=== PATIENT | female | born 1950 | race Caucasian/White ===

== ENCOUNTER → 2017-05-03 | Outpatient (CLI) | payer OTHER ==
[~2017-05-03] MED LIST: CALCA400CH; CHOL10002; Hair, Skin & N1 EACH; L-Lysine500 M1; MSM500 MG; Xalatan2.5 ML
[2017-05-05 12:03] LABS: HPV Genotype 16 Not Detected (NOTDET); HPV Genotype 18 Not Detected (NOTDET)
[2017-05-12 10:54] LABS: HPV High Risk Other Not Detected (NOTDET)
== END | disposition home or self-care (01) ==
LOC: LAB SHORT 16:19 → LAB 16:19
PROVIDERS: Obstetrics & Gynecology
DX: Z09 Encounter for follow-up examination after completed treatment for conditions other than malignant neoplasm (principal); Z86.19 Personal history of other infectious and parasitic diseases
CPT/HCPCS: 87624; 88142

== ENCOUNTER → 2017-06-30 | Outpatient (CLI) | payer OTHER ==
[2017-06-30 13:53] LABS: Stool Occult Bld Immuno 1 Negative (NEGATIVE)
== END | disposition home or self-care (01) ==
LOC: LAB 10:00 → LAB SHORT 10:00 → LAB FUT 04-13 16:35
PROVIDERS: Family Medicine
DX: Z11.2 Encounter for screening for other bacterial diseases (principal)
CPT/HCPCS: G0328

== ENCOUNTER → 2018-05-08 | Outpatient (CLI) | payer OTHER ==
[2018-05-10 15:07] LABS: HPV 16 Negative (Negative); HPV 18 Negative (Negative); HPV OTHER HR TYPES Negative (Negative)
== END | disposition home or self-care (01) ==
LOC: LAB 15:55 → LAB SHORT 15:55
PROVIDERS: Obstetrics & Gynecology
DX: Z01.419 Encounter for gynecological examination (general) (routine) without abnormal findings (principal)
CPT/HCPCS: 87624; G0123

== ENCOUNTER 2021-03-24 11:41 | Inpatient (IN) | payer OTHER ==
[~2021-03-24] VITALS: Ht 157.5 cm; Wt 50.4 kg
[~2021-03-24 11:41] MED LIST changes: -AMOCLA875 PO; -LACT PO; -Norco 5-325 Ta1 EACH PO; -TRAZ50 PO
[2021-03-24 12:42] LABS: BASOPHILS PERCENT AUTO 1 % (0-2); EOSINOPHILS ABSOLUTE AUTO 0.08 K/mm3 (0.00-0.68); EOSINOPHILS PERCENT AUTO 1 % (0-6); Hematocrit 41.1 % (33.0-51.0); Hemoglobin 13.5 g/dL (11.5-16.0); IMMATURE GRAN ABSOLUTE AUTO 0.19 K/mm3 (0.00-0.10); IMMATURE GRAN PERCENT AUTO 2 % (0-1); LYMPHOCYTES ABSOLUTE AUTO 1.51 K/mm3 (0.84-5.20); LYMPHOCYTES PERCENT AUTO 15 % (21-46); MONOCYTES ABSOLUTE AUTO 0.84 K/mm3 (0.16-1.47); MONOCYTES PERCENT AUTO 8 % (4-13); Mean Corpuscular HGB 35.7 pg (26.0-34.0); Mean Corpuscular HGB Conc 32.8 g/dL (31.5-36.5); Mean Corpuscular Volume 109 fL (80-100); Mean Platelet Volume 9.1 fL (9.1-12.4); NEUTROPHILS ABSOLUTE AUTO 7.68 K/mm3 (1.96-9.15); NEUTROPHILS PERCENT AUTO 74 % (41-73); Platelet Count 383 K/mm3 (150-400); RDW Coefficient Variation 12.4 % (11.7-14.2); RDW Standard Deviation 50.4 fL (35.1-46.3); Red Blood Cell Count 3.78 M/mm3 (3.80-5.20)
[2021-03-24 13:04] LABS: Alanine Aminotransfer (ALT/SGP 17 U/L (12-78); Albumin, Blood 3.1 g/dL (3.4-5.0); Albumin/Globulin Ratio 0.7 (0.8-1.8); Alk Phos 77 U/L (50-136); Anion Gap 8 mmol/L (6-16); Aspartate Aminotrans (AST/SGOT 23 U/L (12-37); Bilirubin, Total 0.2 mg/dL (0.1-1.0); Blood Urea Nitrogen 7 mg/dL (8-24); CO2, Blood 27 mmol/L (21-32); Calcium, Blood 9.2 mg/dL (8.5-10.1); Chloride, Blood 104 mmol/L (98-108); Globulin, Blood 4.5 g/dL (2.2-4.0); Glomerular Filtration Rate >60 (60-); Glucose, Blood 125 mg/dL (70-99); Potassium, Blood 3.5 mmol/L (3.5-5.5); Sodium, Blood 139 mmol/L (136-145); Total Protein, Blood 7.6 g/dL (6.4-8.2)
--- NOTE | 2021-03-24 18:42 | NUR ---
SHIFT SUMMARY PT ARRIVED TO UNIT AROUND 1500. PLEASANT & COOPERATIVE, UP IND IN ROOM. C/O ABD PAIN, BUT DENIES N/V.
[2021-03-24] MEDS ORDERED: TRAZ50 PO (21:51)
[2021-03-25 04:15] LABS: BASOPHILS ABSOLUTE AUTO 0.06 K/mm3 (0.00-0.23); BASOPHILS PERCENT AUTO 1 % (0-2); EOSINOPHILS ABSOLUTE AUTO 0.09 K/mm3 (0.00-0.68); EOSINOPHILS PERCENT AUTO 1 % (0-6); Hematocrit 33.2 % (33.0-51.0); Hemoglobin 10.9 g/dL (11.5-16.0); IMMATURE GRAN ABSOLUTE AUTO 0.14 K/mm3 (0.00-0.10); IMMATURE GRAN PERCENT AUTO 2 % (0-1); LYMPHOCYTES ABSOLUTE AUTO 1.53 K/mm3 (0.84-5.20); LYMPHOCYTES PERCENT AUTO 21 % (21-46); MONOCYTES ABSOLUTE AUTO 0.72 K/mm3 (0.16-1.47); MONOCYTES PERCENT AUTO 10 % (4-13); Mean Corpuscular HGB Conc 32.8 g/dL (31.5-36.5); Mean Corpuscular Volume 110 fL (80-100); Mean Platelet Volume 9.6 fL (9.1-12.4); NEUTROPHILS ABSOLUTE AUTO 4.94 K/mm3 (1.96-9.15); NEUTROPHILS PERCENT AUTO 66 % (41-73); Platelet Count 364 K/mm3 (150-400); RDW Coefficient Variation 12.4 % (11.7-14.2); Red Blood Cell Count 3.03 M/mm3 (3.80-5.20); White Blood Cell Count 7.48 K/mm3 (4.00-11.30)
[2021-03-25 04:39] LABS: Anion Gap 8 mmol/L (6-16); Blood Urea Nitrogen 5 mg/dL (8-24); Bun/Creatinine Ratio 9.9 (12.0-20.0); CO2, Blood 25 mmol/L (21-32); Calcium, Blood 8.3 mg/dL (8.5-10.1); Chloride, Blood 107 mmol/L (98-108); Creatinine, Blood 0.51 mg/dL (0.40-1.00); Glomerular Filtration Rate >60 (60-); Glucose, Blood 97 mg/dL (70-99); Potassium, Blood 3.1 mmol/L (3.5-5.5); Sodium, Blood 140 mmol/L (136-145)
--- NOTE | 2021-03-25 05:42 | NUR ---
PT VSS T/O NIGHT. PT NPO X ICE CHIPS, DENIED N/V, REP +FLATUS. ABD MILDLY DISTENDED, PAIN REMAINS IN LLQ. PAIN MGD PER EMAR. PT INDEP IN ROOM. IVF AND ABX CONT PER ORDERS.
--- NOTE | 2021-03-25 18:57 | NUR ---
SHIFT SUMMARY PT HAS DONE WELL T/O SHIFT. ADVANCED TO CLEAR LIQUIDS-TOLERATED WITH NO INCREASED PAIN/NAUSEA. PT HAS BEEN INDEPENDENT IN ROOM. PT REQUESTING IV PAIN MEDICATION FREQUENTLY-Q2. REQUESTED PO PAIN MEDICATION FROM DR FORD, ORDER FOR NORCO 1-2 Q4.
--- NOTE | 2021-03-26 06:01 | NUR ---
SLEPT WELL THROUGH NIGHT. NO ACUTE DITRESS NOTED, RESPIRATIONS EVEN AND UNLABORED. DENIES ABDOMINAL PAIN, BOWEL SOUNDS PRESENT IN ALL 4 QUADS. VOIDING WITHOUT DIFFICULTIES. SAFETY MAINTAINED, CALL GALLOWAY IN REACH
--- NOTE | 2021-03-26 06:25 | NUR ---
MEDICATED WITH NORCO X'S 2 DUE TO COMPLAINT OF ABDOMINAL PAIN, EFFECTIVE RELIEF. SLEPT WELL THROUGH NIGHT, STATED SHE FELT ALOT BETTER THIS AM. SAFETY MAINTAINED, CALL GALLOWAY IN REACH.
[2021-03-26] MEDS ORDERED: AMOCLA875 PO (12:51)
[2021-03-26] MEDS ORDERED: Norco 5-325 Ta1 EACH PO (12:52)
[2021-03-26] MEDS ORDERED: LACT PO (12:52)
--- NOTE | 2021-03-26 14:51 | NUR ---
2693 PT REPORTS LOWER ABD CRAMPING PAIN 8/10 AFTER EATING LUNCH. PT REQUESTS 2 NORCO PRIOR TO DISCHARGE. DISCUSSED WITH PATIENT CURRENT PAIN LEVEL AND IF SHE IS FEELING THAT SHE IS READY TO DISCHARGE, DISCUSSED WITH PATIENT THAT RN WILL CONTACT DR VEGA TO DISCUSS HER INCREASED PAIN AFTER EATING.PT DECLINES THAT DR VEGA BE CONTACTED AND STATES SHE "CAN BE A PATIENT AT HOME" AND THAT SHE WISHES TO PROCEED WITH DISCHARGE
--- NOTE | 2021-03-26 15:28 | NUR ---
1500 PT REQUESTS DISCHARGE HOME. REQUESTED THAT PATIENT STAY FOR 30 MIN AFTER LAST DOSE OF PO MEDS AND PT REQUESTS DISCHARGE AT THIS TIME. PT REPORTS PAIN IS 8/10, DISCUSSED WITH PATIENT IF SHE FEELS THAT SHE IS ABLE TO BE DISCHARGED HOME OR IF SHE WOULD LIKE TO WAIT UNTIL I SPEAK WITH DR VEGA. PT REQUESTS DISCHARGE HOME
== END 2021-03-26 14:46 | disposition home or self-care (01) | DRG 392 ==
LOC: ER 11:41 → SURS 13:57
PROVIDERS: Physician Assistant; ADMIT Surgery
DX: K57.20 Diverticulitis of large intestine with perforation and abscess without bleeding (principal); E87.6 Hypokalemia; H40.9 Unspecified glaucoma; Z53.29 Procedure and treatment not carried out because of patient's decision for other reasons; Z88.0 Allergy status to penicillin; Z88.8 Allergy status to other drugs, medicaments and biological substances; Z90.49 Acquired absence of other specified parts of digestive tract; Z98.890 Other specified postprocedural states; Z90.721 Acquired absence of ovaries, unilateral; Z79.2 Long term (current) use of antibiotics
CPT/HCPCS: 36415; 80048; 80053; 83605; 83690; 85025; 87040; 99285-25; A9270; J1650; J2543; J3010; J7030; J7120

== ENCOUNTER → 2021-03-24 | Outpatient (CLI) | payer OTHER ==
[~2021-03-24] MED LIST changes: +AMOCLA875 PO; -CHOL10002; -Hair, Skin & N1 EACH; +Hair, Skin & N1 EACH PO; -L-Lysine500 M1; +L-Lysine500 M1 PO; +LACT PO; -MSM500 MG; +MSM500 MG PO; +Norco 5-325 Ta1 EACH PO; +TRAZ50 PO; +VITAMIN D325 MC3 PO; -Xalatan2.5 ML; +Xalatan2.5 ML BOTHEYES
== END | disposition home or self-care (01) ==
LOC: LAB 09:30 → LAB SHORT 09:30
DX: N39.0 Urinary tract infection, site not specified (principal)
CPT/HCPCS: 87086

== ENCOUNTER 2021-04-11 13:01 | Inpatient (IN) | payer OTHER ==
[~2021-04-11] VITALS: Ht 157.5 cm; Wt 49.0 kg
[~2021-04-11 13:01] MED LIST changes: +AMOCLA875 PO; +LACT PO; +Norco 5-325 Ta1 EACH PO; +TRAZ50 PO
[2021-04-11 13:39] LABS: BASOPHILS ABSOLUTE AUTO 0.06 K/mm3 (0.00-0.23); BASOPHILS PERCENT AUTO 1 % (0-2); EOSINOPHILS ABSOLUTE AUTO 0.26 K/mm3 (0.00-0.68); EOSINOPHILS PERCENT AUTO 3 % (0-6); Hematocrit 32.6 % (33.0-51.0); Hemoglobin 10.6 g/dL (11.5-16.0); IMMATURE GRAN ABSOLUTE AUTO 0.18 K/mm3 (0.00-0.10); IMMATURE GRAN PERCENT AUTO 2 % (0-1); LYMPHOCYTES ABSOLUTE AUTO 1.17 K/mm3 (0.84-5.20); LYMPHOCYTES PERCENT AUTO 14 % (21-46); MONOCYTES ABSOLUTE AUTO 0.43 K/mm3 (0.16-1.47); MONOCYTES PERCENT AUTO 5 % (4-13); Mean Corpuscular HGB 33.5 pg (26.0-34.0); Mean Corpuscular HGB Conc 32.5 g/dL (31.5-36.5); Mean Corpuscular Volume 103 fL (80-100); Mean Platelet Volume 8.8 fL (9.1-12.4); NEUTROPHILS ABSOLUTE AUTO 6.48 K/mm3 (1.96-9.15); NEUTROPHILS PERCENT AUTO 76 % (41-73); Platelet Count 541 K/mm3 (150-400); RDW Coefficient Variation 14.1 % (11.7-14.2); RDW Standard Deviation 53.5 fL (35.1-46.3); Red Blood Cell Count 3.16 M/mm3 (3.80-5.20); White Blood Cell Count 8.58 K/mm3 (4.00-11.30)
[2021-04-11 14:00] LABS: Alanine Aminotransfer (ALT/SGP 64 U/L (12-78); Albumin, Blood 2.5 g/dL (3.4-5.0); Albumin/Globulin Ratio 0.5 (0.8-1.8); Alk Phos 131 U/L (50-136); Anion Gap 7 mmol/L (6-16); Aspartate Aminotrans (AST/SGOT 46 U/L (12-37); Bilirubin, Total 0.3 mg/dL (0.1-1.0); Blood Urea Nitrogen 12 mg/dL (8-24); CO2, Blood 31 mmol/L (21-32); Calcium, Blood 9.2 mg/dL (8.5-10.1); Chloride, Blood 100 mmol/L (98-108); Creatinine, Blood 0.46 mg/dL (0.40-1.00); Globulin, Blood 5.1 g/dL (2.2-4.0); Glomerular Filtration Rate >60 (60-); Glucose, Blood 167 mg/dL (70-99); Potassium, Blood 3.1 mmol/L (3.5-5.5); Sodium, Blood 138 mmol/L (136-145); Total Protein, Blood 7.6 g/dL (6.4-8.2)
[2021-04-11 17:29] LABS: Influenza A, PCR NEGATIVE (NEGATIVE); Influenza B, PCR NEGATIVE (NEGATIVE); Resp Syncytial Virus, PCR NEGATIVE (NEGATIVE); SARS-Cov-2 (COVID-19) PCR, MMC NEGATIVE (NEGATIVE)
--- NOTE | 2021-04-11 18:21 | NUR ---
PT ARRIVED FROM ED VIA FLETCHER BOBBY, DENIES ANY PAIN OR NAUSEA, ORIENTED TO ROOM AND CALL SYSTEM, DAYS SURGERY ON THE WAY TO GET PT READY FOR OR, PT NOTIFIED.
--- NOTE | 2021-04-11 19:04 | NUR ---
History, Chart, Medications and Allergies reviewed before start of procedure.Lungs clear T/O to Auscultation. Patient confirms NPO status and agrees with scheduled surgery. DR ROCHA SEEING PT.
--- NOTE | 2021-04-12 02:34 | NUR ---
REPORTED TO ROSA SPANN RN AND SHE WILL ASSUME CARE.
[2021-04-12 04:08] LABS: Hematocrit 28.4 % (33.0-51.0); Hemoglobin 9.2 g/dL (11.5-16.0); Mean Corpuscular HGB 33.9 pg (26.0-34.0); Mean Corpuscular HGB Conc 32.4 g/dL (31.5-36.5); Mean Corpuscular Volume 105 fL (80-100); Mean Platelet Volume 8.8 fL (9.1-12.4); Platelet Count 507 K/mm3 (150-400); RDW Coefficient Variation 14.6 % (11.7-14.2); RDW Standard Deviation 56.3 fL (35.1-46.3); Red Blood Cell Count 2.71 M/mm3 (3.80-5.20); White Blood Cell Count 15.47 K/mm3 (4.00-11.30)
[2021-04-12 04:26] LABS: Anion Gap 6 mmol/L (6-16); Blood Urea Nitrogen 8 mg/dL (8-24); Bun/Creatinine Ratio 22.3 (12.0-20.0); CO2, Blood 29 mmol/L (21-32); Calcium, Blood 8.5 mg/dL (8.5-10.1); Chloride, Blood 103 mmol/L (98-108); Creatinine, Blood 0.36 mg/dL (0.40-1.00); Glomerular Filtration Rate >60 (60-); Glucose, Blood 152 mg/dL (70-99); Potassium, Blood 3.9 mmol/L (3.5-5.5); Sodium, Blood 138 mmol/L (136-145)
--- NOTE | 2021-04-12 05:11 | NUR ---
SHIFT SUMMARY A/0X4. SINCE ASSUMING CARE AT APPROX 0300, VITAL SIGNS HAVE BEEN STABLE. PAIN IS BEING MANAGED WITH IV PAIN MEDICATION. PT HAS MILLAN IN PLACE DRAINING TO GRAVITY. MIDLINE YAHAIRA DRESSING IS INTACT WITH SCANT AMOUNT OF RED DRIED DRAINAGE. OSTOMY HAS NO OUTPUT AT THIS TIME. PT REMAINED BEDREST. TOLERATING SIPS OF WATER WITH NO N/V REPORTED. WILL CONTINUE TO MONITOR AND REPORT TO ONCOMING RN.
[2021-04-12 05:37] LABS: BAND PERCENT MAN 34 % (0-8); BASOPHILS PERCENT MAN 0 % (0-2); EOSINOPHILS PERCENT MAN 0 % (0-6); LYMPHOCYTES ABSOLUTE MAN 0.77 K/mm3 (0.84-5.20); LYMPHOCYTES PERCENT MAN 5 % (21-46); MONOCYTES ABSOLUTE MAN 0.46 K/mm3 (0.16-1.47); MONOCYTES PERCENT MAN 3 % (4-13); NEUTROPHILS ABSOLUTE MAN 14.23 K/mm3 (1.96-9.15); SEG NEUTROPHILS PERCENT MAN 58 % (41-73); TOTAL CELLS COUNTED 100
--- NOTE | 2021-04-12 11:00 | NUR ---
PT REPORTS FEELING LIKE SHE IS URINATING AND URINE IS LEAKING AROUND CATHETER. SPOKE WITH DR FORD AND SHE DIRECTED US TO IRRIGATE THE CATHETER WITH STERILE WATER TO SEE IF THE CATHETER TUBING IS OCCLUDED.
--- NOTE | 2021-04-12 13:23 | NUR ---
CATHETER IRRIGATION WAS NOT SUCCESSFUL. DR. FORD ORDERED RN TO REMOVE CURRENT CATHETER AND REPLACE WITH A LARGER CATHETER. INSTERTED A 3 WAY, 22 FR CATH AND LIGHT BROWN/YELLOW URINE DRAINING.
--- NOTE | 2021-04-12 18:25 | NUR ---
SHIFT [facility] POD 1 SIGMOID COLECTOMY W/ OSTOMY & COLOVESICAL FISTULA. MIDLINE DRESSING W/ YAHAIRA, C/D/I. OSTOMY TO LLQ, RED/PINK BEEFY STOMA, SCANT RED/BROWN OUTPUT, REPORTS OF FLATUS. MILLAN CATH CHANGED TO THREE WAY MILLAN W/ BLADDER IRRIGATION D/T SEDIMENT CLOGGING THE MILLAN. TOLERATING PO CLEAR LIQUIDS WELL, DENIES N/V. ABD PAIN MANAGED WITH TORADOL & DILAUDID PER EMAR. RECEPTIVE TO OSTOMY EDUCATION, EAGER & WILLING TO LEARN ABOUT IT. WILL CONTINUE TO MONITOR & REPORT TO ONCOMING RN.
--- NOTE | 2021-04-13 04:47 | NUR ---
SHIFT SUMMARY A/O X4 POD2 SIGMOID COLECTOMY WITH OSTOMY. MIDLINE YAHAIRA INTACT. PASSING FLATUS BUT NO OUTPUT AT THIS TIME. BLADDER IRRIGATION THROUGHOUT THE SHIFT, CLEAR YELLOW URINE. PAIN MANAGED WITH IV PAIN MEDICATION. VITAL SIGNS STABLE. PT REPORTS "INDIGESTION THATS MAKING HER FEEL SLIGHTLY NAUSEATED," BUT STATES SHE DOESNT NEED MEDS AT THIS TIME. BEDREST THROUGHOUT SHIFT. WILL CONTINUE TO MONITOR AND REPORT TO ONCOMING RN.
[2021-04-13 05:26] LABS: BASOPHILS ABSOLUTE AUTO 0.06 K/mm3 (0.00-0.23); BASOPHILS PERCENT AUTO 0 % (0-2); EOSINOPHILS ABSOLUTE AUTO 0.05 K/mm3 (0.00-0.68); EOSINOPHILS PERCENT AUTO 0 % (0-6); Hematocrit 28.6 % (33.0-51.0); Hemoglobin 9.3 g/dL (11.5-16.0); IMMATURE GRAN ABSOLUTE AUTO 0.42 K/mm3 (0.00-0.10); IMMATURE GRAN PERCENT AUTO 3 % (0-1); LYMPHOCYTES ABSOLUTE AUTO 1.51 K/mm3 (0.84-5.20); LYMPHOCYTES PERCENT AUTO 9 % (21-46); MONOCYTES ABSOLUTE AUTO 0.49 K/mm3 (0.16-1.47); MONOCYTES PERCENT AUTO 3 % (4-13); Mean Corpuscular HGB 33.6 pg (26.0-34.0); Mean Corpuscular HGB Conc 32.5 g/dL (31.5-36.5); Mean Corpuscular Volume 103 fL (80-100); Mean Platelet Volume 8.9 fL (9.1-12.4); NEUTROPHILS ABSOLUTE AUTO 13.84 K/mm3 (1.96-9.15); NEUTROPHILS PERCENT AUTO 85 % (41-73); Platelet Count 530 K/mm3 (150-400); RDW Coefficient Variation 14.5 % (11.7-14.2); RDW Standard Deviation 55.5 fL (35.1-46.3); Red Blood Cell Count 2.77 M/mm3 (3.80-5.20); White Blood Cell Count 16.37 K/mm3 (4.00-11.30)
--- NOTE | 2021-04-13 09:49 | NUR ---
CONTINOUS BLADDER IRRIGATION CONTINUES, PATENT AND DRAINING. LIGHT YELLOW IN COLOR. NO SEDIMENT SEEN AT THIS TIME.
--- NOTE | 2021-04-13 12:00 | NUR ---
CONTINOUS BLADDER IRRIGATION STOPPED AT THIS TIME.
--- NOTE | 2021-04-13 16:06 | NUR ---
SHIFT SUMMARY POD 2
--- NOTE | 2021-04-13 16:07 | NUR ---
SHIFT SUMMARY POD 2 SIGMOID COLECTOMY WITH COLOSTOMY AA0X4. PT UP TO CHAIR DURING SHIFT. SHE REPORTS SOME IMPROVEMENT WITH SITTING UP. C/O FEELING QUEEZY/REFLUX THIS MORNING, RELIEVED AFTER TUMS AND ZOFRAN SHE HAS DENIED SINCE. FORMED STOOL IN COLOSTOMY BAG, PT IS PASSING FLATUS. PAIN WELL CONTROLLED DURING SHIFT PER EMAR. SHE STILL REPORTS SMALL APPETITE BUT HAS BEEN ATTEMPTING TO EAT SOME MEALS. PLAN WILL BE TO CONTINUE OSTOMY TEACHING AND ENCOURAGE PO INTAKE. PT MOTIVATED TO LEARN OSTOMY CARE.
--- NOTE | 2021-04-14 00:18 | NUR ---
CATHETER CARE DONE, PT. TOLERATED WELL.
--- NOTE | 2021-04-14 02:16 | NUR ---
SHIFT SUMMARY: PT. AOX4, MILLAN DRAINING CLEAR YELLOW URINE VIA GRAVITY. COLOSTOMY OUTPUT OF MODERATE AMOUNT OF FORMED BROWN STOOLS. MIDLINE YAHAIRA DRESSING WITH SHADOWING OF SMALL AMOUNT OF DRIED BLOOD AT THE LOWER SECTION, SUCTION MACHINE MAKING LONGER SUCTION NOISE AT MIDNIGHT, WRAPPED IN TOWEL FOR PT. TO BE ABLE TO SLEEP, CN AWARE. C/O PAIN MEDICATED PER EMAR. NO ACUTE CHANGES NOTED , WILL CONTINUE TO MONITOR.
--- NOTE | 2021-04-14 05:44 | NUR ---
COLOSTOMY BAG CARE DONE, MODERATE AMOUNT OF FORMED BROWN STOOLS NOTED, PT. TOLERATED.
--- NOTE | 2021-04-14 16:07 | NUR ---
OSTOMY BAG LEAK: PT WALKING IN MOYER WITH THERAPY AND DRIPPING NOTED FROM OSTOMY BAG. SURGICAL DRESSING AND OSTOMY APPLIANCE REMOVED. SMALL AMT FORMED AND LIQUID BROWN STOOL IN BAG. MCKENZIE ARE INTACT TO INCISION. INCISION CLEANSED WITH CLORAPREP AND MEDIPORE DRESSING PLACED PER ORDER FROM DR. FORD. PT EDUCATED ON SKIN CARE AND OSTOMY APPLIANCES. SKIN SOURROUNDING STOMA CLEANSED, STOMA APPEARED WNL. OSTOMY BAG APPLIED, PT TOLERATED WELL.
--- NOTE | 2021-04-14 16:27 | NUR ---
SUMMARY: PT IS POD3 SIGMOID COLECTOMY. VSS, A/O. PT CHEERFUL TODAY AND MOTIVATED TO AMBULATE, ALTHOUGH REFUSED SHOWER WHEN OFFERED. SAT UP IN CHAIR SEVERAL TIMES AND WALKED IN MOYER WITH THERAPY. SURGICAL SITE AND STOMA WNL, SMALL AMT OUTPUT FROM OSTOMY. PT APPEARS BLOATED, TONES ARE HYPOACTIVE. PT TOLERATING REG DIET WITHOUT N/V. MILLAN DRAINING CLEAR YELLOW URINE. PAIN MANAGED WITH 1 NARCO Q4. NO ACUTE CONCERNS, WILL CTM AND REPORT TO MARLY HUNTER.
--- NOTE | 2021-04-14 23:14 | NUR ---
PT. REQUESTED TO TAKE 2100 MEDS AT THIS TIME.
--- NOTE | 2021-04-15 02:04 | NUR ---
SHIFT SUMMARY: PT. AOX4, ABLE TO MAKE NEEDS KNOWN. REQUESTED TO TAKE SCHEDULED MEDS FOR 2100 AT 2300 INSTEAD. COLOSTOMY BAG CHANGED RELATED TO LEAKING TO THE SIDE BY THE R SIDE OF THE STOMA, MEDIPORE MIDLINE DRESSING CHANGED. NO ACUTE CHANGES NOTED. CATHETER CARE DONE, DRAINING CLEAR YELLOW URINE VIA GRAVITY. WILL CONTINUE TO MONITOR.
--- NOTE | 2021-04-15 10:40 | NUR ---
PT REQUEST 1 TABLET OF SENNA AND WARM PRUNE JUICE
--- NOTE | 2021-04-15 16:30 | NUR ---
OSTOMY CONSULT ORDER PLACED FOR PATIENT EDUCATION
--- NOTE | 2021-04-15 17:17 | NUR ---
PT REPORTS PAIN ADEQUATELY CONTROLLED THIS SHIFT WITH PO MEDS. AMBULATED IN MOYER WITH STANDBY ASSIST. ROSALES SMALL AMOUNTS OF FOOD AND FLUID WITHOUT NAUSEA PT REPORTS FEELS GASSY AND SLIGHTLY BLOATED. OSTOMY BAG IN PLACE NO OUTPUT AT THIS TIME
--- NOTE | 2021-04-15 19:13 | NUR ---
pt up to bathroom, emptied own ostomy bag and irrigated bag. pts present during pt emptying. patient and spouse eager to learn. pt independent in emptying bag with verbal cues from rn
--- NOTE | 2021-04-15 21:48 | NUR ---
CATHETER CARE DONE WITH READYCLEANSE WIPES, PT. TOLERATED WELL.
--- NOTE | 2021-04-16 07:25 | NUR ---
SHIFT SUMMARY PT HAD TWO IV'S THAT STARTED LEAKING. A NEW IV WAS PLACED IN LEFT WRIST. MILLAN IN PLACE. OSTOMY APPLIANCE CHANGED TWICE BY STAFF THIS SHIFT. STOMA IS RED, WITH 200 ML'S OUTPUT OF SOFT, BROWN PASTY STOOL. PT REQUESTING TO BE WOKEN UP FOR PAIN MEDICATION. [place]OOKE IS KEEPING PT'S PAIN 5/10. SHE WAS ABLE TO SLEEP ABOUT 4 HOURS THIS SHIFT. ROOM AIR.
--- NOTE | 2021-04-16 09:44 | NUR ---
SPOKE WITH WOUND CARE DEPARTMENT REGARDING OSTOMY CONSULT. SPOKE WITH LORI SALINAS RN WHO WILL PROVIDE PATIENT WITH OSTOMY EDUCATION ON 04/17/21
--- NOTE | 2021-04-16 11:07 | NUR ---
TO RADIOLOGY VIA WHEELCHAIR
--- NOTE | 2021-04-16 11:39 | NUR ---
RETURNED FROM RADIOLOGY, MEDICATED FOR 08/15 ABD PAIN
--- NOTE | 2021-04-16 18:13 | NUR ---
reports pain is adequately controlled with po meds, ambulating with walker and standby assist. sin small portions of vegetarian diet. ostomy with small amount dk brown stool in bag
--- NOTE | 2021-04-17 05:00 | NUR ---
SHIFT SUMMARY: DAVID IS A&OX4. VSS, NO ACUTE EVENTS OVERNIGHT. MCKENZIE TO MIDLINE C/D&I, OSTOMY IN PLACE WITH MINIMAL DRAINAGE THIS SHIFT. MILLAN REMOVED PER ORDER THIS MORNING. SHE IS TOLERATING SMALL AMOUNTS OF PO INTAKE, INDEPENDENT IN THE ROOM, AND REPORTS ADEQUATE PAIN CONTROL WITH ONE TABLET OF NORCO. SHE IS LYING IN BED WITH THE CALL LIGHT IN REACH. WILL CONTINUE TO MONITOR UNTIL REPORT IS GIVEN TO DAY SHIFT RN.
[2021-04-17 05:05] LABS: Hematocrit 26.1 % (33.0-51.0); Hemoglobin 8.6 g/dL (11.5-16.0); Mean Corpuscular Volume 103 fL (80-100); Mean Platelet Volume 8.8 fL (9.1-12.4); Platelet Count 557 K/mm3 (150-400); RDW Coefficient Variation 14.7 % (11.7-14.2); RDW Standard Deviation 56.1 fL (35.1-46.3); Red Blood Cell Count 2.53 M/mm3 (3.80-5.20); White Blood Cell Count 9.25 K/mm3 (4.00-11.30)
[2021-04-17 05:30] LABS: Albumin, Blood 1.8 g/dL (3.4-5.0); Anion Gap 5 mmol/L (6-16); Blood Urea Nitrogen 4 mg/dL (8-24); Bun/Creatinine Ratio 10.2 (12.0-20.0); CO2, Blood 31 mmol/L (21-32); Calcium, Blood 8.4 mg/dL (8.5-10.1); Chloride, Blood 104 mmol/L (98-108); Creatinine, Blood 0.39 mg/dL (0.40-1.00); Glomerular Filtration Rate >60 (60-); Glucose, Blood 106 mg/dL (70-99); Phosphorus, Blood 3.6 mg/dL (2.5-4.9); Potassium, Blood 3.2 mmol/L (3.5-5.5); Sodium, Blood 140 mmol/L (136-145)
--- NOTE | 2021-04-17 16:19 | NUR ---
SHIFT SUMMARY S/P SIGMOID COLECTOMY W/ OSTOMY. PT IS A&O X4, IND IN ROOM. VSS, ON RA. TOLERATING REG DIET WELL, DENIES N/V, OSTOMY PRODUCING SOFT, BROWN STOOL, APPLAINCE CHANGED TODAY. PT EMPTYING AND BURPING ON HER OWN T/O SHIFT. AMBULATED HALLWAYS W/FWW. PT SEEMS TO BE IN GOOD SPIRITS TODAY, VERY RECEPTIVE AND INVOLVED IN CONTINUOUS OSTOMY CARE AND INSTRUCTIONS. WILL CONTINUE TO MONITOR AND REPORT TO ONCOMING RN.
--- NOTE | 2021-04-18 06:30 | NUR ---
SHIFT SUMMARY: DAVID IS A&OX4. VSS, NO ACUTE EVENTS OVERNIGHT. SHE IS INDEPENDENT IN THE ROOM, TOLERATING PO INTAKE WELL, PRODUCING SOFT STOOL FROM HER OSOTMY, AND REPORTS ONE TABLET OF NORCO EFFECTIVE FOR PAIN MANAGEMENT. SHE IS EMPTYING HER OSTOMY INDEPENDENTLY. SHE IS LYING IN BED WITH HER EYES CLOSED AND EVEN, UNLABORED RESPIRATIONS. CALL LIGHT IN REACH. WCTM UNTIL REPORT IS GIVEN TO DAY SHIFT RN.
--- NOTE | 2021-04-18 17:43 | NUR ---
SHIFT SUMMARY S/P SIGMOID COLECTOMY W/ OSTOMY TO LLQ. OSTOMY PRODUCING SMALL AMTS OF LIQUID STOOL T/O SHIFT. STOMA REMAINS PINK/RED & IS INSET. PT HAS BEEN EMPTYING & BURPING OSTOMY BAG T/O SHIFT AND IS TOLERATING IT VERY WELL. NO OTHER ACUTE CHANGES THIS SHIFT. REMAINS IND INROOM, AMBULATES HALLS W/ FWW AT TIMES. ABD PAIN REMAINS 4-5/10, MEDICATED PER EMAR. CONTINUE TO REINFORCE OSTOMY EDUCATION W/ PT AND SHE VERBALIZES THAT SHE IS FEELING BETTER ABOUT IT. WILL CONTINUE TO MONITOR & REPORT TO ONCOMING RN.
--- NOTE | 2021-04-19 04:53 | NUR ---
AOX4. TOLERATING DIET. ONE NORCO PILL FOR PAIN. OSTOMY INTACT. HAVING LOOSE STOOLS. PT EMPTYING BAG. VOIDING. DRESSING IN PLACE ON INCISION. DURING THE DAY PT IS INDEPENDENT IN THE ROOM.
[2021-04-19] MEDS ORDERED: Calcium Carbon500 MG PO (10:03)
--- NOTE | 2021-04-19 16:36 | NUR ---
DISCHARGE PT DISCHARGED AT 1236. PRIOR TO DISCHARGE, PT WAS PROVIDED WITH WRITTEN AND VERBAL DISCHARGE INSTRUCTIONS, SHE REPORTED UNDERSTANDING. PT WAS PROVIDED WITH OSTOMY EDUCATION AND SUPPLIES FOR DISCHARGE HOME. OSTOMY WAS CHANGED PRIOR TO DISCHARGE AND WAS INTACT AT TIME OF DISCHARGE. HOME HEALTH WAS ARRANGED FOR THE PATIENT BY CARE MANAGEMENT. DRESSING SUPPLIES ALSO PROVIDED. PT ESCORTED OUT IN W/C AT 1236 BY IFEANYI.
== END 2021-04-19 12:36 | disposition home or self-care (01) | DRG 330 ==
LOC: ER 13:01 → SURS 18:05
PROVIDERS: Physician Assistant; ADMIT Surgery
PROC: 0DBN0ZZ Excision of Sigmoid Colon, Open Approach (ICD-10-PCS; principal; 2021-04-11 18:00)
PROC: 0W9J0ZZ Drainage of Pelvic Cavity, Open Approach (ICD-10-PCS; 2021-04-11 18:00)
DX: K57.20 Diverticulitis of large intestine with perforation and abscess without bleeding (principal); N32.1 Vesicointestinal fistula; Z20.822 Contact with and (suspected) exposure to COVID-19; N73.9 Female pelvic inflammatory disease, unspecified; Z28.21 Immunization not carried out because of patient refusal; Z88.6 Allergy status to analgesic agent; Z90.49 Acquired absence of other specified parts of digestive tract; Z79.899 Other long term (current) drug therapy; Z86.718 Personal history of other venous thrombosis and embolism; Z87.891 Personal history of nicotine dependence
CPT/HCPCS: 0241U; 36415; 51610; 74177; 74450; 80048; 80053; 80069; 83690; 83735; 85025; 85027; 85651; 86140; 87070; 87077; 87186; 87205; 88307; 93005; 93010; 96365; 96368; 97116; 97162; 97530; 99285-25; A9270; J1100; J1170; J1650; J1885; J2405; J2543; J2704; J3010; J7030; J7050; J7120; Q9967

== ENCOUNTER 2021-06-11 00:05 | Day surgery (SDC) | payer OTHER ==
[~2021-06-11 00:05] MED LIST changes: +Calcium Carbon500 MG PO
== END 2021-06-11 23:00 | disposition home or self-care (01) ==
LOC: WOUND 00:05
DX: L24.B3 Irritant contact dermatitis related to fecal or urinary stoma or fistula (principal)
CPT/HCPCS: G0463

== ENCOUNTER 2021-06-14 09:14 | Day surgery (SDC) | payer OTHER ==
[~2021-06-14] VITALS: Ht 157.5 cm; Wt 49.7 kg
== END 2021-06-14 15:53 | disposition home or self-care (01) ==
LOC: ORSCSDS 09:14
PROVIDERS: Internal Medicine Gastroenterology
PROC: 0DJD8ZZ Inspection of Lower Intestinal Tract, Via Natural or Artificial Opening Endoscopic (ICD-10-PCS; principal; 2021-06-14 10:30)
PROC: 0DBM8ZX Excision of Descending Colon, Via Natural or Artificial Opening Endoscopic, Diagnostic (ICD-10-PCS; principal; 2021-06-14 10:30)
DX: Z12.11 Encounter for screening for malignant neoplasm of colon (principal); K57.30 Diverticulosis of large intestine without perforation or abscess without bleeding; D12.4 Benign neoplasm of descending colon; Z87.891 Personal history of nicotine dependence; Z79.899 Other long term (current) drug therapy
CPT/HCPCS: 88305; J2704; J7120

== ENCOUNTER 2021-12-01 05:52 | Inpatient (IN) | payer OTHER ==
[~2021-12-01] VITALS: Ht 157.5 cm; Wt 50.5 kg
--- NOTE | 2021-12-01 07:10 | NUR ---
Ambulatory in [facility] warming gown applied. Surgical site prepped with 2% Chlorhexidine cloth wipe. History, Chart, Medications and Allergies reviewed before start of procedure.Lungs clear T/O to Auscultation. Patient confirms NPO status and agrees with scheduled surgery. Pre-Op teaching done. Pt verbalizes understanding. Patient States Post-Procedure ride home has been arranged. Patient reports completing Chlorhexadine shower X2 prior to admission to hospital.Patient states colon prep results clear.
--- NOTE | 2021-12-01 08:15 | NUR ---
12/01/21 0815 Zaid Caceres History, Chart, Medications and Allergies reviewed before start of procedure. MONITOR INTACT WITH CONTINUOUS PULSE OXIMETRY AND INTERMITTENT BP. 3-LEAD EKG REVIEWED WITH PHYSICIAN PRIOR TO START OF PROCEDURE. PT INTUBATED BY DR PIÑA. PT REMAINS IN OPERATING ROOM FOR FURTHER PROCEDURE.
--- NOTE | 2021-12-01 14:40 | NUR ---
POST OP: REPORT RECEIVED FROM [employer] SALES AGENT. PT TO UNIT AT 1230. PT A/O, VSS. SURGICAL SITES WNL. PT DENIES PAIN/NAUSEA.
--- NOTE | 2021-12-01 16:43 | NUR ---
SUMMARY: PT IS DOING WELL POST OP. VSS. PT HAS DENIED PAIN. ABLE TO AMBULATE IN HALLS. TOLERATING CLEAR LIQ DIET. SURGICAL SITES WNL.
[2021-12-02 04:57] LABS: BASOPHILS ABSOLUTE AUTO 0.03 K/mm3 (0.00-0.23); BASOPHILS PERCENT AUTO 0 % (0-2); EOSINOPHILS ABSOLUTE AUTO 0.02 K/mm3 (0.00-0.68); EOSINOPHILS PERCENT AUTO 0 % (0-6); Hematocrit 31.9 % (33.0-51.0); Hemoglobin 10.8 g/dL (11.5-16.0); IMMATURE GRAN ABSOLUTE AUTO 0.03 K/mm3 (0.00-0.10); IMMATURE GRAN PERCENT AUTO 0 % (0-1); LYMPHOCYTES ABSOLUTE AUTO 1.63 K/mm3 (0.84-5.20); LYMPHOCYTES PERCENT AUTO 22 % (21-46); MONOCYTES ABSOLUTE AUTO 0.53 K/mm3 (0.16-1.47); MONOCYTES PERCENT AUTO 7 % (4-13); Mean Corpuscular HGB 35.4 pg (26.0-34.0); Mean Corpuscular HGB Conc 33.9 g/dL (31.5-36.5); Mean Corpuscular Volume 105 fL (80-100); Mean Platelet Volume 9.7 fL (9.1-12.4); NEUTROPHILS ABSOLUTE AUTO 5.14 K/mm3 (1.96-9.15); NEUTROPHILS PERCENT AUTO 70 % (41-73); Platelet Count 187 K/mm3 (150-400); RDW Coefficient Variation 11.9 % (11.7-14.2); RDW Standard Deviation 45.8 fL (35.1-46.3); Red Blood Cell Count 3.05 M/mm3 (3.80-5.20); White Blood Cell Count 7.38 K/mm3 (4.00-11.30)
[2021-12-02 05:14] LABS: Bun/Creatinine Ratio 8.4 (12.0-20.0); Calcium, Blood 8.4 mg/dL (8.5-10.1); Creatinine, Blood 0.48 mg/dL (0.40-1.00); Magnesium, Blood 1.9 mg/dL (1.6-2.4); Potassium, Blood 3.5 mmol/L (3.5-5.5)
--- NOTE | 2021-12-02 06:34 | NUR ---
POD 1 S/P OSTOMY REVERSAL. PT VSS T/O NIGHT. INCISIONS CDI. PT REP PAIN MINIMAL, MED W/TYLENOL ONLY PER PT REQ. ABD MILDLY DISTENDED, BT HYPO, PT ROSALES CL PO, REP +FLATUS. PT VOIDING URINE W/O DIFFICULTY. PT AMB IN HALLS X2, ROSALES WELL.
--- NOTE | 2021-12-02 07:39 | NUR ---
MONTY BAZAN DC BY SECOND YEAR [employer] TEACHER W/THIS RN ASSIST. PT ROSALES MAGDALENO.
--- NOTE | 2021-12-02 07:45 | NUR ---
medel removal foely removed at this time. pt tolerated well. waiting for first post removal void. pt will call when needing to void
--- NOTE | 2021-12-02 17:49 | NUR ---
SHIFT SUMMARY POD 1 OSTOMY TAKEDOWN PT HAS BEEN AMBULATING FREQUENTLY, MEDICATED FOR PAIN X1. REPORTS PAIN TOLERABLE. TOLERATING PO WELL. REMAINS BLOATED BUT SHE FEELS IT IS IMPROVING. PLAN IS FOR PATIENT TO DISCHARGE IN THE MORNING.
--- NOTE | 2021-12-03 05:53 | NUR ---
SHIFT SUMMARY POD2 LAP COLOSTOMY REVERSAL W/ COLORECTAL ANASTOMOSIS. LAP SITE WITH WOUND GLUE AND BANDAID ON TOP OF STOMA SITE. SOFT DISTENDED ABD. TOLERATING PO INTAKE, DENIES N/V. VEGE DIET. PASSING FLATUS. DENIES BM. BT PRESENT. INDEPENDENT IN ROOM. VOIDING. POSSIBLE DC TODAY IF ABD IS LESS DISTENDED. PT REPORTS MINIMAL PAIN, PAIN MANANGED WITH ROXICODONE 5MG. CALL LIGHT WITHIN REACH. WILL PROVIDE REPORT TO ONCOMING NURSE.
[2021-12-03] MEDS ORDERED: ROXICODONE5 MG PO (10:21)
--- NOTE | 2021-12-03 10:55 | NUR ---
DISCHARGE: PACKET PRINTED AND PT EDUCATED. IV DC'D WNL, TIP INTACT. PT DENIED NEED FOR WHEELCHAIR UPON DISCHARGE. LEFT UNIT WITH BROTHER AT ABOUT 1040 ON FOOT.
== END 2021-12-03 10:50 | disposition home health service (06) | DRG 331 ==
LOC: BC 05:52 → SURS 05:52 → PRE IP 07:30 → SURS 12:30
PROVIDERS: ADMIT Surgery
PROC: 0DQM4ZZ Repair Descending Colon, Percutaneous Endoscopic Approach (ICD-10-PCS; principal; 2021-12-01 07:30)
DX: Z43.3 Encounter for attention to colostomy (principal); M19.90 Unspecified osteoarthritis, unspecified site; Z90.49 Acquired absence of other specified parts of digestive tract; Z90.710 Acquired absence of both cervix and uterus; Z90.722 Acquired absence of ovaries, bilateral; Z79.899 Other long term (current) drug therapy; Z88.8 Allergy status to other drugs, medicaments and biological substances; Z87.891 Personal history of nicotine dependence
CPT/HCPCS: 36415; 80048; 83735; 85025; A9270; J0694; J1100; J1644; J1650; J1885; J2250; J2370; J2405; J2704; J2795; J3010; J7120

== ENCOUNTER → 2021-12-26 | Outpatient (CLI) | payer OTHER ==
[~2021-12-26] MED LIST changes: +ROXICODONE5 MG PO
[2021-12-27 15:06] LABS: Adenovirus F 40/41 Not Detected (NOT DETECT); Astrovirus Not Detected (NOT DETECT); Campylobacter Sp Not Detected (NOT DETECT); Cryptosporidium Not Detected (NOT DETECT); Cyclospora Cayetanensis Not Detected (NOT DETECT); E. Coli O157 Not Detected (NOT DETECT); Entamoeba Histolytica Not Detected (NOT DETECT); Enteroaggregative E. coli-EAEC Not Detected (NOT DETECT); Enteropathogenic E. coli-EPEC Not Detected (NOT DETECT); Enterotoxigenic E. coli-ETEC Not Detected (NOT DETECT); Giardia Lamblia Not Detected (NOT DETECT); Norovirus GI/GII Not Detected (NOT DETECT); Plesiomonas Shigelloides Not Detected (NOT DETECT); Rotavirus A Not Detected (NOT DETECT); Salmonella Sp Not Detected (NOT DETECT); Sapovirus Not Detected (NOT DETECT); Shiga Toxin-prod E. coli-STEC Not Detected (NOT DETECT); Shigella/Enteroin E. coli-EIEC Not Detected (NOT DETECT); Vibrio Cholerae Not Detected (NOT DETECT); Vibrio Sp Not Detected (NOT DETECT); Yersinia Enterocolitica Not Detected (NOT DETECT)
== END | disposition home or self-care (01) ==
LOC: LAB SHORT 19:00
PROVIDERS: Surgery
DX: R19.5 Other fecal abnormalities (principal)
CPT/HCPCS: 87507

== ENCOUNTER 2022-10-18 07:12 | Day surgery (SDC) | payer OTHER ==
[2022-10-18] VITALS (14 sets, daily range): BP systolic 93–162; BP diastolic 50–88
[~2022-10-18] VITALS: Ht 157.5 cm; Wt 48.5 kg
[~2022-10-18 07:12] MED LIST changes: +MULVITA PO; +VITAMIN D310 MC4 PO
--- NOTE | 2022-10-18 10:37 | NUR ---
10/18/22 Rajni Guerin PATIENT RECEIVED VANCO 1GM IV IN THE PREOP SETTING.
--- NOTE | 2022-10-18 15:51 | NUR ---
SHIFT SUMMARY PT A&OX4, VSS/RA, ROSALES PO, VOIDING, AMB SBA FWW & GB, PAIN MANAGED, SITTING UP TO CHAIR/BLE ELEVATED/POLAR JOSE ON. S/P L TKA, AQUACEL/DERRICK WRAP CDI. WILL REPORT TO NEXT RN.
[2022-10-18] MEDS ORDERED: TRAZ50 PO (16:09)
[2022-10-19 03:02] VITALS: BP 148/86
--- NOTE | 2022-10-19 05:00 | NUR ---
SHIFT SUMMARY PATIENT IS POD1 L TKA, AQUACEL AND DERRICK WRAP TO L KNEE C/D/I. JAMARI RAMIREZ, SCD'S IN PLACE, POLAR PACK TO L KNEE. AMBULATING IN MOYER THIS SHIFT. VOIDING AND TOELRATING PO INTAKE. DENIES PAIN, MEDICTED PER SCHEDULED EMAR ORDERS. VSS, CALL LIGHT IN REACH.
[2022-10-19 05:56] LABS: BASOPHILS ABSOLUTE AUTO 0.02 K/mm3 (0.00-0.23); BASOPHILS PERCENT AUTO 0 % (0-2); EOSINOPHILS ABSOLUTE AUTO 0.01 K/mm3 (0.00-0.68); EOSINOPHILS PERCENT AUTO 0 % (0-6); Hemoglobin 11.1 g/dL (11.5-16.0); IMMATURE GRAN ABSOLUTE AUTO 0.08 K/mm3 (0.00-0.10); IMMATURE GRAN PERCENT AUTO 1 % (0-1); LYMPHOCYTES ABSOLUTE AUTO 1.49 K/mm3 (0.84-5.20); LYMPHOCYTES PERCENT AUTO 13 % (21-46); MONOCYTES ABSOLUTE AUTO 0.64 K/mm3 (0.16-1.47); MONOCYTES PERCENT AUTO 5 % (4-13); Mean Corpuscular HGB 36.2 pg (26.0-34.0); Mean Corpuscular HGB Conc 34.7 g/dL (31.5-36.5); Mean Corpuscular Volume 104 fL (80-100); Mean Platelet Volume 10.9 fL (9.1-12.4); NEUTROPHILS ABSOLUTE AUTO 9.51 K/mm3 (1.96-9.15); NEUTROPHILS PERCENT AUTO 81 % (41-73); Platelet Count 161 K/mm3 (150-400); RDW Coefficient Variation 12.4 % (11.7-14.2); RDW Standard Deviation 47.3 fL (35.1-46.3); Red Blood Cell Count 3.07 M/mm3 (3.80-5.20); White Blood Cell Count 11.75 K/mm3 (4.00-11.30)
[2022-10-19 06:22] LABS: Bun/Creatinine Ratio 16.1 (12.0-20.0); Calcium, Blood 8.3 mg/dL (8.5-10.1); Creatinine, Blood 0.44 mg/dL (0.40-1.00); Potassium, Blood 3.8 mmol/L (3.5-5.5)
[2022-10-19] MEDS ORDERED: ASPI81CH PO (08:25)
[2022-10-19] MEDS ORDERED: Percocet 5-3251 EACH PO (08:26)
[2022-10-19 08:50] VITALS: BP 148/97
[2022-10-19 08:51] VITALS: BP 152/87
--- NOTE | 2022-10-19 09:05 | NUR ---
DISCHARGE NOTE: PATIENT WAS EDUCATED ON DISCHARGE INSTRUCTIONS. SHE VERBALIZED UNDERSTANDING OF INSTRUCTIONS AND HAD NO FURTHER QUESTIONS AT THIS TIME. HARD PERSCRIPTIONS WERE ALREADY PICKED UP AND FILLED OUT YESTERDAY BY PATIENTS BROTHER. IV WAS TAKEN OUT AND WNL. PAIN IS MANAGED WITH ORAL PAIN MEDICATIONS. HER LEFT KNEE HAS AN AQUACEL AND DERRICK WRAP THAT IS C/D/I. DENIES NUMBNESS OR TINGLING IN ALL EXTREMITIES. CAN MOVE ALL FINGERS AND TOES WHEN ASKED. SHE IS TOLERATING PO INTAKE AND IS VOIDING. SHE IS A SBA WITH FWW AND GAIT BELT. PATIENT IS DRESSED AND HAS PERSONAL ITEMS IN THE ROOM GATHERED. PATIENT IS AWAITING FOR HER RIDE TO COME AND PICK HER UP TO TAKE HER HOME.
--- NOTE | 2022-10-19 09:30 | NUR ---
PATIENT WAS WHEELCHAIRED OUT TO FAMILY CAR TO BE TAKEN HOME. ALL PERSONAL ITEMS IN THE ROOM WERE GATHERED.
== END 2022-10-19 09:11 | disposition home or self-care (01) ==
LOC: ORSCMMR 07:12 → ORD 08:15 → ORSCMMR 08:15 → SURS 12:06 → ORSCMMR 10-19 09:11
PROVIDERS: Orthopaedic Surgery
PROC: 0SRD0JA Replacement of Left Knee Joint with Synthetic Substitute, Uncemented, Open Approach (ICD-10-PCS; principal; 2022-10-18 10:00)
DX: M17.12 Unilateral primary osteoarthritis, left knee (principal); Z79.899 Other long term (current) drug therapy; Z87.891 Personal history of nicotine dependence
CPT/HCPCS: 36415; 73560-LT; 80048; 85025; 97110; 97116; 97161; 97530; A9270; C1776; J0171; J0690; J0735; J1100; J1885; J2250; J2371; J2704; J2795; J3010; J3370; J7120

== ENCOUNTER 2022-12-29 21:16 | Emergency (ER) | payer OTHER ==
[~2022-12-29] VITALS: Ht 157.5 cm; Wt 49.9 kg
[~2022-12-29 21:16] MED LIST changes: +ASPI81CH PO; +Percocet 5-3251 EACH PO
[2022-12-29 21:22] VITALS: BP 140/81
== END 2022-12-29 22:47 | disposition home or self-care (01) ==
LOC: ER 21:16
DX: S00.31XA Abrasion of nose, initial encounter (principal); W01.10XA Fall on same level from slipping, tripping and stumbling with subsequent striking against unspecified object, initial encounter; Z88.8 Allergy status to other drugs, medicaments and biological substances; G47.00 Insomnia, unspecified; Z87.891 Personal history of nicotine dependence
CPT/HCPCS: 70450; 99284-25

== ENCOUNTER → 2024-03-26 | Outpatient (CLI) | payer OTHER ==
[~2024-03-26] MED LIST changes: +LATA.005SO BOTHEYES; +NEURONTIN300 MG; +OXAYDO5 M1 PO
[2024-04-01 11:28] LABS: HPV GENOTYPE 16 BY TMA Not Detected; HPV GENOTYPE 18/45 BY TMA Not Detected; HPV HIGH RISK BY TMA Detected; HPV SOURCE Cervical; HPVG SOURCE Cervical
== END ==
LOC: LAB 10:23 → LAB SHORT 10:23
PROVIDERS: Obstetrics & Gynecology
DX: Z87.42 Personal history of other diseases of the female genital tract (principal)
CPT/HCPCS: 87624; 87625; 88142

== ENCOUNTER → 2024-06-17 | Outpatient (CLI) | payer OTHER | LOC: LAB 07:49 → LAB SHORT 07:49 | DX: N88.8 Other specified noninflammatory disorders of cervix uteri (principal) | CPT/HCPCS: 88305; 88342 ==